=== PATIENT | female | born 1955 | race Caucasian/White ===

== ENCOUNTER 2017-03-16 13:58 | Emergency (ER) | payer BC ==
[2017-03-16 14:08] VITALS: BP 142/74
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
== END 2017-03-16 14:26 | disposition home or self-care (01) ==
LOC: ER 13:58
DX: S00.93XA Contusion of unspecified part of head, initial encounter (principal); W10.2XXA Fall (on)(from) incline, initial encounter; Y92.009 Unspecified place in unspecified non-institutional (private) residence as the place of occurrence of the external cause; Z85.3 Personal history of malignant neoplasm of breast; E03.9 Hypothyroidism, unspecified; I10 Essential (primary) hypertension; E78.5 Hyperlipidemia, unspecified; F41.8 Other specified anxiety disorders

== ENCOUNTER 2020-03-05 08:56 | Inpatient (IN) ==
[~2020-03-05 08:56] MED LIST: RINGER'S SOLUTION,LACTATED 1,000 ML IV PRN; ROPIVACAINE HCL/PF 100 MG, EPINEPHrine 0.2 MG, KETOROLAC TROMETHAMINE 30 MG in NORMAL S... IJ PRN; TRANEXAMIC ACID 1,000 MG in NORMAL SALINE 100 ML IV PRN; ceFAZolin SODIUM 1 GM VIAL IV PRN; ceFAZolin SODIUM 1 GM VIAL ONE
[2020-03-05] MEDS ORDERED: MIDAZOLAM HCL/PF 5 MG/ML VIAL ONE (09:04)
[2020-03-05] MEDS ORDERED: PROPOFOL VIAL IV ONE ×2 (09:05→09:53)
[2020-03-05] MEDS ORDERED: BUPIVACAINE HCL/PF 10 ML VIAL ONE (09:05)
--- NOTE | 2020-03-05 09:26 | ANES ---
Anesthesia Pre Procedure Eval HOME MEDICATIONS atenolol 25 mg tablet 25 mg PO DAILY #90 tab 06/27/19 [Last Taken Unknown] atorvastatin 10 mg tablet 10 mg PO DAILY #90 tab 06/27/19 [Last Taken Unknown] citalopram 40 mg tablet 40 mg PO DAILY #90 tab 06/27/19 [Last Taken Unknown] levothyroxine 100 mcg tablet 100 mcg PO DAILY #90 tab 06/27/19 [Last Taken Unknown] tamoxifen 20 mg tablet 20 mg PO DAILY tab 02/06/20 [Last Taken Unknown] Allergies/Adverse Reactions: Allergies Allergy/AdvReac Type Severity Reaction Status Date / Time codeine [Codeine] Allergy Severe throwing up Verified 02/20/20 13:48 meperidine HCl [From Demerol] Allergy Severe throwing up Verified 02/20/20 13:48 - Planned Procedure Planned Procedure: Right Total Hip Arthroplasty Medication List Reviewed:: Yes Allergies Verified: Yes Medical History (Last Reviewed 03/05/20 @ 09:15 by Gilmar Olmedo CRNA) Anxiety (Chronic) Onset Date: ~10/09/11 Hyperlipidemia (Chronic) Onset Date: Unknown Hypertension (Chronic) Onset Date: ~07/09/11 Hypothyroidism (Chronic) Onset Date: ~10/09/11 Distal radius fracture, right (Acute) Onset Date: 10/06/19 Osteopenia (Chronic) Onset Date: 04/03/19 Per DEXA scan obtained at [facility]. Breast cancer Onset Date: 01/24/19 Right invasive lobular breast cancer. Sterling-Anton grade 2 (tubules=3, nuclei=2, mitosis=1). Invasive tumor is positive for ER and OK (both 3+, 100%). Clinical stage 1B [id number] grade 2 ER positive HER2 equivocal. Shoulder pain, left Onset Date: ~2017 Depression Onset Date: ~10/09/11 Breast cancer Onset Date: ~2006 Left invasive ductal carcinoma s/p lumpectomy, XRT, chemotherapy, and Arimidex. Breast microcalcifications Onset Date: Unknown left Epicondylitis Onset Date: Unknown Shoulder pain Onset Date: Unknown right Vertigo Onset Date: Unknown Colles' fracture of right radius, initial encounter for closed fracture (Inactive) Onset Date: 10/06/19 Surgical History (Last Reviewed 03/05/20 @ 09:15 by Gilmar Olmedo CRNA) History of open reduction and internal fixation (ORIF) procedure Onset Date: 10/13/19 Dr. Parvez Preston, [facility]. Open reduction internal fixation of highly comminuted and displaced right intra-articular distal radius fracture. History of bunionectomy Onset Date: ~04/2015 History of colonoscopy Onset Date: 03/29/09 Dr. Ford Jones, [facility]. Normal. History of dilation and curettage Onset Date: Unknown History of partial mastectomy of left breast Onset Date: 08/13/06 Dr. Ford Jones, [facility]. With sentinel node biopsy. History of right breast biopsy Onset Date: 01/24/19 History of right mastectomy Onset Date: 03/08/19 Dr. Kacey Lopez, [facility]. Right mastectomy with sentinel node biopsy. History of tubal ligation Onset Date: Unknown Family History (Last Reviewed 03/05/20 @ 09:15 by Gilmar Olmedo CRNA) Mother Hypertension Father , age 79 committed suicide Hypertension Polio Brother Hypertension Aunt Breast cancer Paternal Aunt Brain tumor Maternal - Family Anesthesia History Family History:: no untoward family reactions to anesthesia, no familial bleeding tendencies, no family history of clotting disorders, no family history of premature - Airway/Neck/Teeth Within Normal Limits:: Yes Denture Type: Perm crown/bridge - upper Neck Exam: full range of motion Mallampatti Score: 2 Thyromental (T-M) distance: > 6 cm Mandibulo Hyoid distance: > 3 cm - Respiratory Respiratory Physical: lungs clear Smoking Status: Former smoker - quit 25 years ago Sleep Apnea currently treated: No Sleep Apnea by current assessment: No - Cardiovascular Cardiac History: hypertension, hyperlipidemia Tolerate Activity: Good Heart Sounds: S1 & S2, Regular - Gastrointestinal NPO since: 2400 except meds. - Anesthesia Assessment and Plan ASA Class: PS, II Anesthesia Type Plan: Spinal - extremely nervous
[2020-03-05] MEDS ORDERED: ONDANSETRON HCL/PF 2 MG/ML VIAL ONE (09:28)
[2020-03-05] MEDS ORDERED: ONDANSETRON HCL/PF 2 MG/ML VIAL IV PRN (12:13)
[2020-03-05] MEDS ORDERED: ZOLPIDEM TARTRATE 5 MG TABLET PO PRN (12:13)
[2020-03-05] MEDS ORDERED: MAGNESIUM HYDROXIDE 30 ML UDC PO PRN (12:13)
[2020-03-05] MEDS ORDERED: MAG HYDROX/ALUMINUM HYD/SIMETH 30 ML UDC PO PRN (12:13)
[2020-03-05] MEDS ORDERED: diphenhydrAMINE HCL 50 MG/ML VIAL IV PRN (12:13)
[2020-03-05] MEDS ORDERED: ACETAMINOPHEN 500 MG TABLET PO PRN (12:13)
--- NOTE | 2020-03-05 12:18 | OR ---
Operative Report - Dictated Report Narrative: Date: 03/05/2020 Preoperative diagnosis: Right hip degenerative joint disease. Postoperative diagnosis: Right hip degenerative joint disease. Procedure: Right total hip arthroplasty. Surgeon: Eriberto Ward M.D. Application Penetration Tester: Ignacio Owens PA-C (provided an essential set of skilled, educated and assisted with transfer, positioning, prepping, draping, manipulation, traction, irrigation, suturing, and placement of dressings all of which cannot be performed by the available surgical crew) Anesthesia: Spinal and local periarticular joint injection. Complications: None Specimens: Bone. Estimated blood loss: 150 milliliters. Retained implants: Depuy [place] size 3 femoral stem standard offset. Size 52 millimeter outside diameter 3-hole [place] Gription acetabular cup. 52 millimeter outside by 36 millimeter inside diameter highly cross-linked acetabular liner. 36 millimeter diameter +5 millimeter ceramic femoral head. Cancellous 6.5mm screw 25,40 millimeter lengths Indications: Mrs. Dinero is a 64-year-old female who has had longstanding right hip pain and arthrosis. This patient was followed in my clinic for period of time with significant complaints of right hip pain consistent with arthritic changes. She failed conservative measures including but not limited to activity modification, passage of time, medications, and other conservative measures. Patient wished to proceed with surgical treatment. The risks, benefits, and alternatives were discussed in clinic. The risks of , blood clots, bleeding, infection, nerve/tendon blood vessel/ injury, malposition of components, dislocation and/or instability of joint, intraoperative fracture, postoperative limited range of motion, persistent pain, failure of components, and need for additional procedures. Patient wished to proceed. Consent was obtained after answering all questions. Procedure: After marking the correct extremity on the floor, the patient was taken to the operating room. A timeout was performed. IV antibiotics consisting of Ancef were administered prior to the procedure. A spinal anesthetic was induced by anesthesia. A Moise catheter was inserted. The patient was then transitioned to a lateral position on a well-padded pegboard. An axillary roll was placed. The head was in neutral position. The non- operative down leg was well-padded with SCD and ANNA hose in place. The arms were supported and padded to protect from any undue pressure on the bony prominences and nerves. A well-padded anterior and posterior pelvic and chest posts were secured in order to maintain a stable position of the pelvis. This was placed so that the pelvis was perpendicular to the floor. The body was in line with the pelvis. Once it was felt that we had protected all the bony prominences and the patient was well secured with a safety belt as well, the leg was pre-scrubbed with alcohol, prepped and draped in a standard sterile fashion. A standard anterior lateral hip incision was marked out over the greater trochanter. Ioban drapes were then placed. The skin incision was then made. Sharp dissection with a scalpel utilizing cautery for hemostasis was carried out down to the gluteus and iliotibial band fascia. This was split in line with the skin incision. The greater trochanter bursa was excised. The anterior and posterior margins of the abductor tendon were identified. The anterior 1/2-1/3 of the tendon was tagged and reflected off the greater trochanter leaving a sleeve of tendon for repair at the completion of the case. This exposed the underlying hip joint capsule. A limb length stitch was placed in the skin and referencedd off a rodrigo on the greater trochanter for evaluation of intraoperative limb lengths. An inverted T-type capsulotomy was made extending this up to the brim of the acetabulum. Using Homans to assist with elevation of the soft tissues off the anterior, superior, and inferior aspects of the femoral neck, the hip was then placed in a figure 4 position and the femoral head was dislocated. With the leg in an externally rotated and adducted position, the cutting flag was utilized in order to rodrigo for a standard femoral neck cut approximately a fingerbreadth above the level of the lesser trochanter. This was done with reference to pre-operative films and overall alignment. This was done while protecting the surrounding soft tissues with Homans. The femoral head was then removed and sized for guidance on preparation of the acetabulum. It was noted that there was loss of articular cartilage on both the femoral head and weightbearing portions of the acetabulum. We then returned the leg to the table and turned our attention to the acetabulum. While protecting the surrounding soft tissues, the labrum and remaining tissue in the fovea were excised using a scalpel and cautery. A series of reamers up to size 52 millimeter were utilized to prepare the acetabulum. The final reamer had good purchase and exposed the bleeding subchondral bone. The acetabulum was then thoroughly irrigated ensuring that all bony and cartilaginous materials were removed, and the final acetabular shell was impacted into place. This was placed in approximately 45 degrees of abduction and 20 degrees of anteversion utilizing the outrigger and body axis for alignment. This had a good press fit. 2 6.5mm cancellous screws were placed in the superior posterior quadrant of the acetabulum. The shell was then thoroughly irrigated and the final polyethylene was impacted into place ensuring that it seated completely. This was then protected with a sponge while we returned our attention to the femur. With the leg in a figure 4 position, utilizing Homans for soft tissue protection, a box cutting osteotome, followed by Charnley awl, followed by serial reamers and broaches were utilized in order to prepare the femur. It was found that a size 3 broach gave good axial and rotational stability. The calcar reamer was utilized in order to clean up the cut edges. The proximal femur was visualized to ensure that there were no signs of fracture. A series of heads and necks were trialed. It was found that a standard offset neck and a + 5 femoral head gave good overall stability. There was minimal longitudinal instability. With the leg in the position of sleep, the femoral head was well covered. Hip range of motion was able to reach full extension and external rotation to greater than 75 degrees prior to impingement along the posterior acetabulum. The hip was able to be flexed to greater than 90 degrees with internal rotation greater than 60 degrees prior to anterior impingement. The limb lengths were near equal based on comparison to the contralateral side and the prior placed limb length stitch. At this point it was felt these were the appropriately sized femoral components as well as neck and femoral head. The trial implants were removed. The femur was thoroughly irrigated. The final implants were impacted into place, and the hip was reduced. After ensuring that there was no damage to the proximal femur, the standard periarticular joint injection of ropivacaine, Toradol, and epinephrine were injected into the joint capsule and surrounding soft tissues. Anesthesia then administered intravenous tranexamic acid. The capsule was repaired with a single interrupted #1 Vicryl. The abductor tendon was repaired to the greater trochanter utilizing #5 Ethibond through drill holes. This was oversewn with #1 Vicryl. The fascia was closed with interrupted #1 Vicryl and #1 strata fix barbed suture. The wounds were thoroughly irrigated as we closed in layers. The deep and subcutaneous fat layers were closed with 0 and 3-0 Vicryl respectively. The subcutaneous tissue was closed with a running 3-0 Vicryl and the skin elie. All sponge, needle, blade, and instrument counts were correct prior to closing the wounds. Sterile dressings consisting of xeroform, 4 x 4's, and tape were applied. The patient was awoken and transferred to her hospital bed and then to the postanesthesia care unit in stable condition. Postoperative condition: The plan is to admit to the medical/surgical inpatient floor postoperatively. There will be a projected 1 to 3 day hospital stay. Postoperatively 24 hours of IV antibiotics, pain control, physical therapy, occupational therapy, and medical comanagement will be utilized. Patient will be weightbearing as tolerated with anterior hip precautions. Postoperative films will be obtained in the recovery room.
--- NOTE | 2020-03-05 12:36 | ANES ---
Post Anesthesia Discharge - Transfer of Care Transfer of Care handoff given to nurse: Yes - Discharge from PACU Discharge from PACU when meets criteria: Yes - Awake and comfortable.
--- NOTE | 2020-03-05 13:12 | ANES ---
Post Anesthesia Assessment - Vital Signs Vitals: Last Vital Signs Temp 36.3 C 03/05/20 13:00 Pulse 49 L 03/05/20 13:00 Resp 14 03/05/20 13:00 BP 85/46 L 03/05/20 13:00 Pulse Ox 97 03/05/20 13:00 Airway Patency: Normal - Mental Status Level Of Consciousness: Awake, Alert, Appropriate - Pain Level Pain Score: 0 - N/V Assessment Nausea/Vomiting Presence: None Dehydration:: No
[2020-03-05] MEDS: KETOROLAC TROMETHAMINE 15 MG/ML VIAL IV SCH ×2 (13:32→18:49)
[2020-03-05] MEDS: ceFAZolin SODIUM 1 GM in DEXTROSE 5 % IN WATER 100 ML IV SCH ×4 (13:33→20:22)
[2020-03-05] MEDS: oxyCODONE HCL/ACETAMINOPHEN 1 TAB TABLET PO PRN ×2 (14:20→18:49)
[2020-03-05] MEDS: DEXTROSE 5%-LACTATED RINGERS 1,000 ML IV PRN ×2 (14:52→22:30)
[2020-03-05] MEDS: MORPHINE SULFATE 2 MG/ML DISP.SYRIN IV PRN ×4 (16:03→22:26)
[2020-03-05] MEDS: SENNOSIDES/DOCUSATE SODIUM 1 TAB TABLET PO SCH (20:21)
[2020-03-06] MEDS: KETOROLAC TROMETHAMINE 15 MG/ML VIAL IV SCH ×4 (01:52→19:05)
[2020-03-06] MEDS: ceFAZolin SODIUM 1 GM in DEXTROSE 5 % IN WATER 100 ML IV SCH ×2 (01:52)
[2020-03-06] MEDS: oxyCODONE HCL/ACETAMINOPHEN 1 TAB TABLET PO PRN ×2 (04:52→12:32)
[2020-03-06 06:39] LABS: Hematocrit 31.2 % (37.0-47.0); Hemoglobin 9.7 gm/dL (12.5-16.0); Mean Cell Volume 91.8 fl (78-100); Mean Corpuscular Hemoglobin 28.5 pg (27-31); Mean Corpuscular Hgb Conc 31.1 g/dl (32-36); Mean Platelet Volume 9.7 fl (8-12.5); Platelet Count 216 K/mm3 (150-450); Red Cell Distribution Width 12.7 % (11.5-14.0); White Blood Count 9.7 K/mm3 (4.0-10.5)
[2020-03-06 06:48] LABS: Anion Gap 8.6 mmol/L (6.8-13.8); BUN/Creatinine Ratio 21.8 (9.0-21.6); Calcium * 7.9 mg/dL (7.9-10.9); Carbon Dioxide 28.2 mmol/L (24-32.6); Estimated Creat Clear 58.7; Potassium 3.8 mmol/L (3.4-4.6)
[2020-03-06] MEDS ORDERED: LEVOTHYROXINE SODIUM 100 MCG TABLET PO SCH ×2 (07:00→17:00)
[2020-03-06] MEDS: MORPHINE SULFATE 15 MG TABLET.SA PO SCH ×2 (08:13→20:40)
[2020-03-06] MEDS ORDERED: CITALOPRAM HYDROBROMIDE 20 MG TABLET PO SCH ×2 (09:00→17:00)
[2020-03-06] MEDS ORDERED: ATENOLOL 25 MG TABLET PO SCH ×2 (09:00→17:00)
[2020-03-06] MEDS ORDERED: ROSUVASTATIN CALCIUM 5 MG TABLET PO SCH ×2 (09:00→17:00)
[2020-03-06] MEDS ORDERED: DEXTROSE 5%-LACTATED RINGERS 500 ML IV ONE (09:15)
[2020-03-06] MEDS ORDERED: ENOXAPARIN SODIUM 40 MG/0.4 ML SYRG SC SCH (11:14)
[2020-03-06] MEDS ORDERED: SCOPOLAMINE HYDROBROMIDE 1.5 MG PATC TD ONE (15:55)
[2020-03-06] MEDS ORDERED: MORPHINE SULFATE 10 MG/0.5 ML SYRINGE PO PRN (15:57)
--- NOTE | 2020-03-06 16:15 | PN ---
Subjective - Date and Time Seen Date: 03/06/20 Time: 07:45 Subjective Narrative: Subjective: Reports nausea and pain. Was able to get to the chair with therapy. Pain is not well-controlled. Voiding without any complications although limited. Tolerating by mouth intake. Denies calf pain. Physical exam: Alert and oriented to person, place and time Right lower extremity: Palpable dorsalis pedis pulse. Sensation grossly intact to light touch. Dressings clean and dry. Able to flex and extend ankle and toes. No excessive drainage. Calf and thigh are soft and nontender. Assessment: Postop day 1 status post right total hip arthroplasty. Plan: Due to the need for pain control, post-operative limited mobility, protection of the surgical site and joint, monitoring of the wound, and the management of chronic medical conditions, she requires continued inpatient care. Continue with physical and occupational therapy weightbearing as tolerated. Continue with anticoagulation. 24 hours postoperative prophylactic antibiotics. Pain control with goal to rely on oral medications-adjusted and added some nausea medicines. Continue bowel regimen. Will need 6 weeks with walker or assistive device to protect joint while ambulating during the recovery process. Discharge planning. Discontinue Moise catheter. Objective - Vitals Vitals: Last Vital Signs Temp 37.0 C 03/06/20 14:23 Pulse 71 03/06/20 14:23 Resp 16 03/06/20 14:23 BP 111/46 03/06/20 14:23 Pulse Ox 96 03/06/20 14:23 - Abnormal Lab Findings Abnormal Lab Findings: Abnormal Lab Results 03/06/20 03/06/20 Range/Units 06:30 06:30 RBC 3.40 L (4.2-5.4) M/mm3 Hgb 9.7 L (12.5-16.0) gm/dL Hct 31.2 L (37.0-47.0) % MCHC 31.1 L (32-36) g/dl BUN/Creatinine Ratio 21.8 H (9.0-21.6) Random Glucose 124 H (70-110) mg/dL Cauti Physician Documentation - Urinary Catheter Management Urethral (Moise) Date of Insertion: 03/05/20 Time of Insertion: 10:45 Assessment/Plan - Problems/Diagnosis (1) Status post right hip replacement Problem: Acute (2) Nausea and vomiting in adult Problem: Acute (3) Anxiety Problem: Chronic (4) Hyperlipidemia Problem: Chronic (5) Hypertension Problem: Chronic (6) Hypothyroidism Problem: Chronic
[2020-03-06] MEDS: SENNOSIDES/DOCUSATE SODIUM 1 TAB TABLET PO SCH (20:40)
[2020-03-07] MEDS: KETOROLAC TROMETHAMINE 15 MG/ML VIAL IV SCH ×2 (01:18→07:17)
[2020-03-07] MEDS: MORPHINE SULFATE 15 MG TABLET.SA PO SCH (07:56)
--- NOTE | 2020-03-07 08:20 | DS ---
(1) Status post right hip replacement Problem: Acute (2) Nausea and vomiting in adult Problem: Acute (3) Anxiety Problem: Chronic (4) Hyperlipidemia Problem: Chronic (5) Hypertension Problem: Chronic (6) Hypothyroidism Problem: Chronic Date of Discharge:: 03/07/20 Hospital Course: Mrs. Dienro was admitted to the floor after undergoing right total hip arthroplasty. Tolerated this well. Was admitted to the floor postoperatively for 24 hours of IV antibiotics, pain control, medical comanagement, and occupational and physical therapy. OT and PT were consulted to assist with activities of daily living and ambulation. Was made weightbearing as tolerated with anterior hip precautions. Pain was initially controlled with IV regimen. This was transitioned to oral once tolerating a by mouth intake. She did have some nausea and her pain medicines were adjusted in this regard did require additional stay. She was resumed on home diet and medications. A Moise catheter was inserted in the operating room which was discontinued by postoperative day 1. Lovenox, SCDs, and ANNA hose were utilized for DVT prophylaxis. Vital signs remained stable to the hospital course. Labs were obtained which showed a final hemoglobin of 9.7 grams. BMP was reviewed and was stable. Physical examination throughout the hospital course showed an extremity that had sensation that was intact to light touch, palpable pulses, a benign wound, motor intact to the toes, ankle, and knee. Once an oral pain regimen was tolerated and physical therapy goals were met, it was felt that they were stable for discharge to home. Instructions: Continue with weightbearing as tolerated and anterior hip precautions. Do not bathe or soak the wound. Keep the wound clean and dry and cover with dry gauze and tape. Change every 2-3 days as needed if there is any drainage. Cover wound while showering. Continue with physical therapy. Resume home diet. Report any fever over 101.5 Fahrenheit, uncontrolled pain, increased drainage, foul odor of drainage, new or increased calf pain or shortness of breath, or any other significant complaints. A 325mg daily aspirin will be started after finishing anticoagulation if not allergic. Continue with ANNA hose on the operative extremity until instructed otherwise. No driving until instructed otherwise. Follow up in approximately 2-3 weeks. Procedures Performed: see notes below List Procedures: Right total hip arthroplasty Results and Findings: Lab Pending Results 03/06/20 06:30: WBC 9.7, RBC 3.40 L, Hgb 9.7 L, Hct 31.2 L, MCV 91.8, MCH 28.5, MCHC 31.1 L, RDW 12.7, Plt Count 216, MPV 9.7 03/06/20 06:30: Sodium 132, Plasma Sodium 132, Potassium 3.8, Chloride 99, Carbon Dioxide 28.2, Anion Gap 8.6, BUN 17, Creatinine 0.78, Est GFR (Non-Af Amer) 79, BUN/Creatinine Ratio 21.8 H, Random Glucose 124 H, Calcium 7.9 Disposition: Home self-care Condition: Good Discharge Activity: Weight bearing, Other - Anterior hip precautions Discharge Diet: General/regular food Referrals: Dejan Archer DO [Primary Care Provider] - Dae Lee PAC [Price Accuracy Supervisor] - 03/19/20 2:00 pm Problem Oriented Discharge Instructions to Patient/Family: Total Hip Rep lacement, [id number] Additional Patient Instructions (free text): Physical therapy at [facility] outpatient rehab department on Follow up [facility] Orthopedic office appointment on WednesdayMarch 19 at 2:00pm. Prescriptions (Any new or edited meds): Enoxaparin Sodium [Lovenox] 40 mg SC Q24H #7 disp.syrin Transmission Status: Pending to [place], [place] Morphine Sulfate 1 - 2 tab PO Q4H PRN #50 tab PRN Reason: Pain Transmission Status: Received by [place], [place] Morphine Sulfate [Ms Contin] 15 mg PO Q12H #10 tablet.sa Transmission Status: Received by [place], [place] Promethazine HCl [Phenergan (Promethazine)] 25 mg PO Q6H PRN #30 tab PRN Reason: nausea/vomiting Transmission Status: Pending to [place], [place] Sennosides/Docusate Sodium [Senokot-S] 2 tab PO HS #60 tab Transmission Status: Pending to [place], [place] Complete Home Medications List: Complete Home Medication List: atenolol 25 mg tablet 25 mg PO DAILY #90 tab 06/27/19 atorvastatin 10 mg tablet 10 mg PO DAILY #90 tab 06/27/19 citalopram 40 mg tablet 40 mg PO DAILY #90 tab 06/27/19 levothyroxine 100 mcg tablet 100 mcg PO DAILY #90 tab 06/27/19 Enoxaparin Sodium [Lovenox] 40 mg SC Q24H #7 disp.syrin 03/07/20 Morphine Sulfate 1 - 2 tab PO Q4H PRN #50 tab 03/07/20 Morphine Sulfate [Ms Contin] 15 mg PO Q12H #10 tablet.sa 03/07/20 Promethazine HCl [Phenergan (Promethazine)] 25 mg PO Q6H PRN #30 tab 03/07/20 Sennosides/Docusate Sodium [Senokot-S] 2 tab PO HS #60 tab 03/07/20 Amb Orders for Discharge: PT Evaluation and Treatment* Facility: [facility], Location: Rehabilitation Services
[2020-03-07 09:34] VITALS: BP 127/57
== END 2020-03-07 09:20 | disposition home or self-care (01) | DRG 470 ==
LOC: MS 08:56 → EDSTATUS 11:30
PROVIDERS: ADMIT Orthopaedic Surgery; ATTEND Orthopaedic Surgery
DX: E03.9 Hypothyroidism, unspecified; E78.5 Hyperlipidemia, unspecified; M16.11 Unilateral primary osteoarthritis, right hip; I10 Essential (primary) hypertension; F41.9 Anxiety disorder, unspecified; R11.2 Nausea with vomiting, unspecified